=== PATIENT | female | born 1975 | race Caucasian/White ===

== ENCOUNTER → 2017-05-20 | Outpatient (CLI) | payer OTHER ==
[~2017-05-20] MED LIST: AMOXICILLIN500 M1 PO; BACTRIM DS TABL1 TA1 PO; BENADRYL PO; CALCIUM1 TAB.CHEW PO; CENTRUM PO; CLARITIN10 MG PO; DEBROX15 M1 OT; DICYCLOMINE HCL20 MG PO; EXCEDRIN ASA FR1 TA1 PO; FAMOTIDINE PO; FISH OIL 1,0001 CAP PO; IBUPROFEN PO; KEFLEX500 MG PO; LORTAB 7.5-5001 TAB PO; PRILOSEC PO; PROTONIX PO; ULTRAM PO; ZYRTEC-D T1 TAB.SR . PO; ZYRTEC-D T1 TAB.SR1
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
[2017-05-20 15:41] LABS: POC - CREATININE 0.77 mg/dL (0.44-1.03); POC - GFR >60.0 mL/min (>60)
== END | disposition home or self-care (01) ==
LOC: CCAT 14:17
DX: R10.9 Unspecified abdominal pain (principal); N83.201 Unspecified ovarian cyst, right side; N20.0 Calculus of kidney
CPT/HCPCS: 74177; 82565; Q9967